=== PATIENT | female | born 1990 | race Caucasian/White ===

== ENCOUNTER 2019-08-27 14:30 | Emergency (ER) | payer MEDICAID, OTHER ==
[~2019-08-27] VITALS: Ht 162.6 cm; Wt 132.0 kg
[2019-08-27] MEDS ORDERED: LIDOCAINE 5% PATCH TOP STA (20:39)
[2019-08-27] MEDS ORDERED: KETOROLAC 30MG/ML VIAL IM ONE (20:45)
[2019-08-27] MEDS ORDERED: HYDROCODONE/ACETAMINOPHEN 10/325MG TABLET PO ONE (20:45)
[2019-08-28 00:23] VITALS: BP 115/79
== END 2019-08-28 00:24 | disposition home or self-care (01) ==
LOC: ER 14:30
DX: M54.42 Lumbago with sciatica, left side (principal); M54.41 Lumbago with sciatica, right side; E11.9 Type 2 diabetes mellitus without complications; F12.90 Cannabis use, unspecified, uncomplicated
CPT/HCPCS: 96372; 99283; J1885